=== PATIENT | male | born 1975 | race Caucasian/White ===

== ENCOUNTER 2016-07-31 15:43 | Outpatient (CLI) ==
[2014-09-24 12:32] VITALS: BMI 39.9
[2016-07-31 16:50] LABS: BASOPHILS % (AUTO) 0.4 % (0.0-3.0); EOSINOPHILS # (AUTO) 0.1 K/ul (0.0-0.7); EOSINOPHILS % (AUTO) 1.3 % (0.0-7.0); HEMATOCRIT 45.4 % (42.0-52.0); HEMOGLOBIN 15.3 g/dl (14.0-18.0); IMMATURE GRANULOCYTE % (AUTO) 0.4 % (0.0-5.0); LYMPHOCYTES # (AUTO) 2.3 K/uL (0.60-3.4); LYMPHOCYTES % (AUTO) 23.5 (10.0-50.0); MEAN CORPUSCULAR HEMOGLOBIN 26.7 pg (27.0-31.0); MEAN CORPUSCULAR HGB CONC 33.7 (31.8-35.4); MEAN CORPUSCULAR VOLUME 79.2 fl (80.0-94.0); MONOCYTES # (AUTO) 0.8 K/uL (0.4-2.0); MONOCYTES % (AUTO) 7.8 (0-10); NEUTROPHILS # (AUTO) 6.4 K/ul (2.0-6.9); NEUTROPHILS % (AUTO) 66.6; PLATELET COUNT 304 10^3/uL (140-440); RED BLOOD COUNT 5.73 10^6/ul (4.70-6.10); WHITE BLOOD COUNT 9.57 K/ul (4.2-10.2)
[2016-07-31 16:52] LABS: BILIRUBIN,URINE Negative (NEGATIVE); KETONES,URINE Negative (NEGATIVE); LEUKOCYTE ESTERASE ,URINE Negative (NEGATIVE); NITRITE,URINE Negative (NEGATIVE); PH,URINE 5.5 (5-9); PROTEIN,URINE 1+ (NEGATIVE); URINE, BLOOD Trace-intact (NEGATIVE)
[2016-07-31 16:58] LABS: ADD URINE MICROSCOPIC YES
[2016-07-31 17:09] LABS: ALBUMIN 3.6 g/dL (3.4-5.0); ALBUMIN/GLOBULIN RATIO 0.71; ANION GAP 14.1; BILIRUBIN,TOTAL 0.4 mg/dL (0.00-1.20); BUN/CREATININE RATIO 16.1; CHOL/HDL RATIO 5.4 (4.5-6.4); CREATININE 1.18 mg/dL (0.60-1.10); POTASSIUM 4.1 mmol/L (3.5-5.1); TOTAL PROTEIN 8.7 g/dL (6.4-8.2)
== END 2016-07-31 15:44 | disposition home or self-care (01) ==
LOC: LAB 15:43
PROVIDERS: ATTEND General Practice
DX: E11.628 Type 2 diabetes mellitus with other skin complications (principal); I10 Essential (primary) hypertension; Z79.899 Other long term (current) drug therapy
CPT/HCPCS: 36415; 80053; 80061; 81001; 83036; 85025

== ENCOUNTER 2016-10-25 20:28 | Emergency (ER) ==
[2016-10-25 20:37] VITALS: BP 162/93; TEMP 98.4; BMI 40.4
[2016-10-25] MEDS ORDERED: LIDOCAINE HCL 4% 5 ML AMP INJ STA (20:51)
[2016-10-25] MEDS ORDERED: BACTRIM DS 800/160 MG PO STA (20:55)
--- NOTE | 2016-10-25 20:55 | ED.PDOC ---
General ED Provider: Dr. IMANI HARRIS Chief Complaint: Bite Stated Complaint: Pateint states he noticed that the back of his neck was swelling. Thinks it was an infected hair follical. Over the past 24 hours it has gotten larger and more painful and formed a head. Time Seen by Physician: 20:52 Mode of Arrival: Walk-In Information Source: Patient Exam Limitations: No limitations [facility] Documentation Reviewed and Agree: Yes Skin Complaint Exam - Skin/Soft Tissue Complaint/Exam Onset/Duration: 3 day Symptoms Are: Still present Timing: Constant Initial Severity: Moderate Current Severity: Severe Location: Posterior Character: Reports: Redness, Swelling, Raised, Painful Aggravating: Reports: Touch Alleviating: Reports: None Associated Signs and Symptoms: Reports: Tenderness, Red streaks Related History: Denies: Similar episode, Recent trauma, Foreign body, Insect bite/sting, Recent Med change, Prior MRSA/VRE, Recent inpatient, Recent travel Related Surgical History: Reports: None Skin Findings: Present: Erythema, Induration, Fluctuant mass, Pustules. Absent : Weeping skin, Wet ulceration, Dry ulceration Joint Tenderness Present: No Differential Diagnoses: Abscess, Cellulitis, Lymphadenitis, MRSA Review of Systems - Review Of Systems Constitutional: Reports: No symptoms Eyes: Reports: No symptoms Ears, Nose, Mouth, Throat: Reports: No symptoms Respiratory: Reports: No symptoms Cardiac: Reports: No symptoms GI: Reports: No symptoms : Reports: No symptoms Musculoskeletal: Reports: No symptoms Skin: Reports: Lesions Neurological: Reports: No symptoms Endocrine: Reports: No symptoms Hematologic/Lymphatic: Reports: No symptoms All Other Systems: Reviewed and Negative Past Medical History - Past Medical History Previously Healthy: Yes Endocrine: Reports: DM 2 Cardiovascular: Reports: Hypertension Respiratory: Reports: None Hematological: Reports: None Gastrointestinal: Reports: GERD Genitourinary: Reports: None Neuro/Psych: Reports: Anxiety, Depression Musculoskeletal: Reports: None Cancer: Reports: None - Surgical History General Surgical History: Reports: Tonsillectomy, Adenoidectomy - Family History Family History: Reports: Unknown - Social History Smoking Status: Never smoker Hx Substance Use: No Alcohol Screening: Occasionally - Immunizations Tetanus Shot up to Date: Yes Physical Exam - Physical Exam Appearance: Ill-appearing, No pain distress, Obese Ill-appearing: Mild Pain Distress: Moderate Eyes: KRYSTIAN, EOMI, Conjunctiva clear Neck: Nonsupple (Fluctuate mass on the posterior neck with warmth and redness has formed a head.) Respiratory: Airway patent, Breath sounds clear, Breath sounds equal, Respirations nonlabored Cardiovascular: RRR, Pulses normal, No rub, No murmur GI/: Soft, Nontender, No masses, Bowel sounds normal, No Organomegaly Musculoskeletal: Normal strength, ROM intact, No edema, No calf tenderness Skin: Warm, Dry Neurological: Sensation intact, Motor intact, Reflexes intact, Cranial nerves intact, Alert, Oriented Psychiatric: Mood appropriate, Anxious Procedures - Incision and Drainage Site: Posterior Cervical Instrument Used: 11 Blade I & D Procedure: Yes: Betadine Prep, Packing placed Lidocaine Used: Yes Type of Drainage: Present: Pus (copuis ), Blood Irrigated: Yes Progress: Tolerated well Critical Care Note - Critical Care Note Total Time (mins): 0 Course - Course Orders, Labs, Meds: Orders Category Date Time Status WOUND CULTURE Stat LAB 10/25/16 21:30 Received Lidocaine HCl/Pf [Lidocaine HCl 4% 5 ml Amp] MEDS 10/25/16 20:51 Discontinued 5 ml INJ ONCE STA Sulfamethoxazole/Trimethoprim [Bactrim Ds 800/160 mg] MEDS 10/25/16 20:55 Discontinued 1 tab PO ONCE STA Medications Discontinued Medications Generic Name Dose Route Start Last Admin Trade Name Freq PRN Reason Stop Dose Admin Lidocaine HCl 5 ml 10/25/16 20:51 10/25/16 21:19 Lidocaine Hcl 4% 5 Ml Amp INJ 10/25/16 20:52 5 ml ONCE STA Administration Trimethoprim/Sulfamethoxazole 1 tab 10/25/16 20:55 10/25/16 21:18 Bactrim Ds 800/160 Mg PO 10/25/16 20:56 1 tab ONCE STA Administration Vital Signs: Temp Pulse Resp BP Pulse Ox 10/25/16 20:28 98.4 F 102 H 22 162/93 H 94 L Departure - Departure Time of Disposition: 21:37 Disposition: HOME SELF-CARE Discharge Problem: Abscess of neck Instructions: Abscess (ED) Condition: Fair Pt referred to PMD for follow-up: Yes Additional Instructions: Push fluids Follow up with PCP in 2 days to have packing changed Take antibiotics as prescribed. Prescriptions: Ibuprofen [Motrin] 600 mg PO Q6H PRN #30 tablet PRN Reason: Analgesia Sulfamethoxazole/Trimethoprim [Bactrim Ds Tablet] 1 each PO BID #20 tablet Allergies/Adverse Reactions: Allergies IVP dye Allergy (Severe, Uncoded 10/25/16 20:34) N/V Home Medications: Ambulatory Orders Empagliflozin [Jardiance] 10 mg PO DAILY 10/25/16 Ibuprofen [Motrin] 600 mg PO Q6H PRN #30 tablet 10/25/16 Linagliptin [Tradjenta] 5 mg PO DAILY 10/25/16 Sulfamethoxazole/Trimethoprim [Bactrim Ds Tablet] 1 each PO BID #20 tablet 10/25 Disposition Discussed With: Patient
== END 2016-10-25 21:46 | disposition home or self-care (01) ==
LOC: ED 20:28
DX: L02.11 Cutaneous abscess of neck (principal); E11.9 Type 2 diabetes mellitus without complications; I10 Essential (primary) hypertension
CPT/HCPCS: 87070; 87186; 99283

== ENCOUNTER 2016-10-29 12:39 | Outpatient (CLI) ==
[2016-10-29 13:08] LABS: ALBUMIN 2.9 g/dL (3.4-5.0); ANION GAP 14.7; BUN/CREATININE RATIO 15.9; CALCIUM 10.2 mg/dL (8.2-10.2); CREATININE 1.32 mg/dL (0.60-1.10); PHOSPHORUS 3.5 mg/dL (2.5-4.9); POTASSIUM 4.7 mmol/L (3.5-5.1)
== END 2016-10-29 12:40 | disposition home or self-care (01) ==
LOC: LAB 12:39
PROVIDERS: ATTEND General Practice
DX: E11.628 Type 2 diabetes mellitus with other skin complications (principal)
CPT/HCPCS: 36415; 80069

== ENCOUNTER 2017-02-12 14:49 | Outpatient (CLI) | END 2017-02-12 14:50 | disposition home or self-care (01) | LOC: LAB 14:49 | PROVIDERS: ATTEND General Practice | DX: J02.9 Acute pharyngitis, unspecified (principal); R59.9 Enlarged lymph nodes, unspecified | CPT/HCPCS: 36415; 86308; 87502; 87651 ==

== ENCOUNTER 2017-02-13 10:19 | Outpatient (CLI) | END 2017-02-13 10:20 | disposition home or self-care (01) | LOC: LAB 10:19 | PROVIDERS: ATTEND General Practice | DX: E11.628 Type 2 diabetes mellitus with other skin complications (principal); I10 Essential (primary) hypertension | CPT/HCPCS: 36415; 80053; 80061; 81001; 83036; 85025 ==

== ENCOUNTER 2017-04-14 11:50 | Outpatient (CLI) | END 2017-04-14 11:51 | disposition home or self-care (01) | LOC: FCC-LAB 11:50 | PROVIDERS: ATTEND General Practice | DX: R05 Cough (principal); R09.81 Nasal congestion | CPT/HCPCS: 87804 ==

== ENCOUNTER 2017-04-23 11:07 | Outpatient (CLI) | END 2017-04-23 11:08 | disposition home or self-care (01) | LOC: FCC-LAB 11:07 | PROVIDERS: ATTEND General Practice | DX: E11.628 Type 2 diabetes mellitus with other skin complications (principal); E11.65 Type 2 diabetes mellitus with hyperglycemia; I10 Essential (primary) hypertension; Z79.899 Other long term (current) drug therapy; Z89.411 Acquired absence of right great toe | CPT/HCPCS: 36415; 80053; 80061; 81001; 83036; 83519; 83525; 84681; 85025 ==

== ENCOUNTER 2017-06-30 17:38 | Outpatient (CLI) | END 2017-06-30 17:39 | disposition home or self-care (01) | LOC: FCC-LAB 17:38 | PROVIDERS: ATTEND General Practice | DX: E11.628 Type 2 diabetes mellitus with other skin complications (principal) | CPT/HCPCS: 83037 ==

== ENCOUNTER 2017-07-27 10:04 | Outpatient (CLI) | END 2017-07-27 10:05 | disposition home or self-care (01) | LOC: FCC-LAB 10:04 | PROVIDERS: ATTEND General Practice | DX: E11.628 Type 2 diabetes mellitus with other skin complications (principal); I10 Essential (primary) hypertension | CPT/HCPCS: 36415; 80069; 83036 ==

== ENCOUNTER 2017-07-31 16:50 | Outpatient (CLI) | END 2017-07-31 16:51 | disposition home or self-care (01) | LOC: FCC-LAB 16:50 | PROVIDERS: ATTEND General Practice | DX: E11.628 Type 2 diabetes mellitus with other skin complications (principal) | CPT/HCPCS: 87070; 87186 ==

== ENCOUNTER 2017-08-05 07:41 | Outpatient (CLI) ==
[2017-08-05] MEDS ORDERED: LIDOCAINE HCL 1% SDV IM STA (10:58)
[2017-08-05] MEDS ORDERED: ROCEPHIN IM STA (10:58)
[2017-08-05 11:24] VITALS: BP 153/101; TEMP 97.7
--- NOTE | 2017-08-05 13:40 | DI ---
EXAM: Three views of the left foot HISTORY: Infection. COMPARISON: CT left foot 09/24/2014 FINDINGS: There is significant thickening of the skin overlying the amputation site at the metatarsal s. There are osteophytes present. There is no definitive erosions or lytic lesion. There is degene rative change in the midfoot. Calcaneal spurs are present. IMPRESSION: 1. Significant skin thickening overlying the site of amputation suggestive of cellulitis with no und erlying gas or definitive osseous abnormality to suggest osteomyelitis. If further evaluation is ind icated, MRI may be obtained. 2. Degenerative disease throughout the mid and hind foot.
== END 2017-08-05 07:42 | disposition home or self-care (01) ==
LOC: WOUND 07:41 → OPMED 07:42
PROVIDERS: ATTEND Nurse Practitioner Family
DX: E11.621 Type 2 diabetes mellitus with foot ulcer (principal)
CPT/HCPCS: 11042; 36415; 85027; 87070; 87186; 96372; 99202; 99204

== ENCOUNTER 2017-08-19 08:44 | Outpatient (CLI) | END 2017-08-19 08:45 | disposition home or self-care (01) | LOC: WOUND 08:44 | PROVIDERS: ATTEND Nurse Practitioner Family | DX: I87.332 Chronic venous hypertension (idiopathic) with ulcer and inflammation of left lower extremity (principal); L97.422 Non-pressure chronic ulcer of left heel and midfoot with fat layer exposed; E11.621 Type 2 diabetes mellitus with foot ulcer; L89.623 Pressure ulcer of left heel, stage 3; L97.822 Non-pressure chronic ulcer of other part of left lower leg with fat layer exposed; I10 Essential (primary) hypertension; E11.40 Type 2 diabetes mellitus with diabetic neuropathy, unspecified | CPT/HCPCS: 11042 ==

== ENCOUNTER 2017-08-21 14:31 | Outpatient (CLI) | END 2017-08-21 14:32 | disposition home or self-care (01) | LOC: FCC-LAB 14:31 | PROVIDERS: ATTEND General Practice | DX: E11.628 Type 2 diabetes mellitus with other skin complications (principal) | CPT/HCPCS: 36415; 83037 ==

== ENCOUNTER 2017-08-26 08:57 | Outpatient (CLI) | END 2017-08-26 08:58 | disposition home or self-care (01) | LOC: WOUND 08:57 | PROVIDERS: ATTEND Nurse Practitioner Family | DX: I87.332 Chronic venous hypertension (idiopathic) with ulcer and inflammation of left lower extremity (principal); L97.422 Non-pressure chronic ulcer of left heel and midfoot with fat layer exposed; E11.621 Type 2 diabetes mellitus with foot ulcer; L89.623 Pressure ulcer of left heel, stage 3; L97.822 Non-pressure chronic ulcer of other part of left lower leg with fat layer exposed; I10 Essential (primary) hypertension; E11.40 Type 2 diabetes mellitus with diabetic neuropathy, unspecified | CPT/HCPCS: 11042; 99213 ==

== ENCOUNTER 2017-08-31 07:57 | Outpatient (CLI) ==
--- NOTE | 2017-08-31 10:41 | MRI ---
EXAM: MRI of the left lower extremity without contrast COMPARISON: Left foot radiographs 08/05/2017. CT of the left foot 09/24/2014. HISTORY: Transmetatarsal amputation 1 year ago due to osteomyelitis. Drainage, infection. TECHNIQUE: Multiplanar noncontrast MR images of the left midfoot and forefoot remnant were acquired using a 1.2 Kelly magnet. The submitted images are mildly limited by patient motion artifact. FINDINGS: The patient is status post transmetatarsal amputation. There is subcutaneous edema involvi ng the midfoot and forefoot remnant which is most pronounced distally at the site of previous surgery consistent with cellulitis. There is soft tissue ulceration involving the distal portion of the low er extremity stump extending along the plantar aspect of the metatarsal remnants. Ill-defined fluid e xtending along the distal aspect of the fifth metatarsal remnant without a discrete drainable abscess . There is low-level marrow edema within the distal portion of the first through fifth metatarsal rem nants which may represent reactive marrow edema though early changes of acute osteomyelitis are not e xcluded. Degenerative spurring along the tarsometatarsal, navicular cuneiform and talonavicular joints with la rgest osteophytes dorsally at the talonavicular joint. Limited assessment the ankle/hind-foot demons trates degenerative change of the tibiotalar and subtalar joints with partial ankylosis/osseous coali tion along the middle facet of the subtalar joint. No evidence of an acute fracture. Intact Lisfran c ligament fibers are identified. Muscle atrophy. Plantar calcaneal spur. No soft tissue mass iden tified. IMPRESSION: 1. Status post transmetatarsal amputation. 2. Cellulitis. Soft tissue ulceration involving the plantar/distal aspect of the lower extremity st ump. Trace ill-defined fluid along the distal aspect of the fifth metatarsal remnant without a discr ete drainable abscess. 3. Low-level marrow edema within the distal portions of the first through fifth metatarsal remnants which may be reactive in nature though early changes of acute osteomyelitis are not excluded. Consid er follow-up imaging. 4. Muscle atrophy. 5. Degenerative changes as described.
== END 2017-08-31 07:58 | disposition home or self-care (01) ==
LOC: RAD 07:57
PROVIDERS: ATTEND General Practice
DX: M79.89 Other specified soft tissue disorders (principal); T14.8XXA Other injury of unspecified body region, initial encounter; R23.4 Changes in skin texture

== ENCOUNTER 2017-09-02 10:16 | Outpatient (CLI) | END 2017-09-02 10:17 | disposition home or self-care (01) | LOC: WOUND 10:16 | PROVIDERS: ATTEND Nurse Practitioner Family | DX: I87.332 Chronic venous hypertension (idiopathic) with ulcer and inflammation of left lower extremity (principal); L97.422 Non-pressure chronic ulcer of left heel and midfoot with fat layer exposed; E11.621 Type 2 diabetes mellitus with foot ulcer; L89.623 Pressure ulcer of left heel, stage 3; L97.822 Non-pressure chronic ulcer of other part of left lower leg with fat layer exposed; I10 Essential (primary) hypertension; E11.40 Type 2 diabetes mellitus with diabetic neuropathy, unspecified | CPT/HCPCS: 11042 ==

== ENCOUNTER 2017-09-09 08:49 | Outpatient (CLI) | END 2017-09-09 08:50 | disposition home or self-care (01) | LOC: WOUND 08:49 | PROVIDERS: ATTEND Nurse Practitioner Family | DX: I87.332 Chronic venous hypertension (idiopathic) with ulcer and inflammation of left lower extremity (principal); L97.822 Non-pressure chronic ulcer of other part of left lower leg with fat layer exposed; E11.621 Type 2 diabetes mellitus with foot ulcer; L97.422 Non-pressure chronic ulcer of left heel and midfoot with fat layer exposed; I10 Essential (primary) hypertension; E11.40 Type 2 diabetes mellitus with diabetic neuropathy, unspecified | CPT/HCPCS: 11042 ==

== ENCOUNTER 2017-09-16 08:53 | Outpatient (CLI) | END 2017-09-16 08:54 | disposition home or self-care (01) | LOC: WOUND 08:53 | PROVIDERS: ATTEND Nurse Practitioner Family | DX: I87.332 Chronic venous hypertension (idiopathic) with ulcer and inflammation of left lower extremity (principal); L97.822 Non-pressure chronic ulcer of other part of left lower leg with fat layer exposed; E11.621 Type 2 diabetes mellitus with foot ulcer; L97.422 Non-pressure chronic ulcer of left heel and midfoot with fat layer exposed; I10 Essential (primary) hypertension; E11.40 Type 2 diabetes mellitus with diabetic neuropathy, unspecified ==

== ENCOUNTER 2017-09-23 08:59 | Outpatient (CLI) | END 2017-09-23 09:00 | disposition home or self-care (01) | LOC: WOUND 08:59 | PROVIDERS: ATTEND Nurse Practitioner Family | DX: I87.332 Chronic venous hypertension (idiopathic) with ulcer and inflammation of left lower extremity (principal); L97.822 Non-pressure chronic ulcer of other part of left lower leg with fat layer exposed; E11.621 Type 2 diabetes mellitus with foot ulcer; L97.422 Non-pressure chronic ulcer of left heel and midfoot with fat layer exposed; I10 Essential (primary) hypertension; E11.40 Type 2 diabetes mellitus with diabetic neuropathy, unspecified ==

== ENCOUNTER 2017-10-07 08:59 | Outpatient (CLI) | END 2017-10-07 09:00 | disposition home or self-care (01) | LOC: WOUND 08:59 | PROVIDERS: ATTEND Nurse Practitioner Family | DX: E11.621 Type 2 diabetes mellitus with foot ulcer (principal); L97.422 Non-pressure chronic ulcer of left heel and midfoot with fat layer exposed; I10 Essential (primary) hypertension; E11.40 Type 2 diabetes mellitus with diabetic neuropathy, unspecified | CPT/HCPCS: 87070; 87186 ==

== ENCOUNTER 2017-11-04 08:52 | Outpatient (CLI) | END 2017-11-04 08:53 | disposition home or self-care (01) | LOC: WOUND 08:52 | PROVIDERS: ATTEND Nurse Practitioner Family | DX: E11.621 Type 2 diabetes mellitus with foot ulcer (principal); L97.422 Non-pressure chronic ulcer of left heel and midfoot with fat layer exposed; I10 Essential (primary) hypertension; E11.40 Type 2 diabetes mellitus with diabetic neuropathy, unspecified | CPT/HCPCS: 11042; 87070; 87186 ==

== ENCOUNTER 2017-11-11 09:43 | Outpatient (CLI) | END 2017-11-11 09:44 | disposition home or self-care (01) | LOC: WOUND 09:43 | PROVIDERS: ATTEND Nurse Practitioner Family | DX: E11.621 Type 2 diabetes mellitus with foot ulcer (principal); L97.422 Non-pressure chronic ulcer of left heel and midfoot with fat layer exposed; I10 Essential (primary) hypertension; E11.40 Type 2 diabetes mellitus with diabetic neuropathy, unspecified ==

== ENCOUNTER 2017-11-18 09:44 | Outpatient (CLI) | END 2017-11-18 09:45 | disposition home or self-care (01) | LOC: WOUND 09:44 | PROVIDERS: ATTEND Nurse Practitioner Family | DX: E11.621 Type 2 diabetes mellitus with foot ulcer (principal); L97.422 Non-pressure chronic ulcer of left heel and midfoot with fat layer exposed; I10 Essential (primary) hypertension; E11.40 Type 2 diabetes mellitus with diabetic neuropathy, unspecified | CPT/HCPCS: 11042 ==

== ENCOUNTER 2017-12-02 09:43 | Outpatient (CLI) | END 2017-12-02 09:44 | disposition home or self-care (01) | LOC: WOUND 09:43 | PROVIDERS: ATTEND Nurse Practitioner Family | DX: E11.621 Type 2 diabetes mellitus with foot ulcer (principal); L97.422 Non-pressure chronic ulcer of left heel and midfoot with fat layer exposed; I10 Essential (primary) hypertension; E11.40 Type 2 diabetes mellitus with diabetic neuropathy, unspecified ==

== ENCOUNTER 2017-12-09 09:33 | Outpatient (CLI) | END 2017-12-09 09:34 | disposition home or self-care (01) | LOC: WOUND 09:33 | PROVIDERS: ATTEND Nurse Practitioner Family | DX: E11.621 Type 2 diabetes mellitus with foot ulcer (principal); L97.422 Non-pressure chronic ulcer of left heel and midfoot with fat layer exposed; I10 Essential (primary) hypertension; E11.40 Type 2 diabetes mellitus with diabetic neuropathy, unspecified | CPT/HCPCS: 11042 ==

== ENCOUNTER 2017-12-16 09:28 | Outpatient (CLI) | END 2017-12-16 09:29 | disposition home or self-care (01) | LOC: WOUND 09:28 | PROVIDERS: ATTEND Nurse Practitioner Family | DX: E11.621 Type 2 diabetes mellitus with foot ulcer (principal); L97.422 Non-pressure chronic ulcer of left heel and midfoot with fat layer exposed; I10 Essential (primary) hypertension; E11.40 Type 2 diabetes mellitus with diabetic neuropathy, unspecified | CPT/HCPCS: 11042 ==

== ENCOUNTER 2017-12-30 08:52 | Outpatient (CLI) | END 2017-12-30 08:53 | disposition home or self-care (01) | LOC: WOUND 08:52 | PROVIDERS: ATTEND Nurse Practitioner Family | DX: E11.621 Type 2 diabetes mellitus with foot ulcer (principal); L97.422 Non-pressure chronic ulcer of left heel and midfoot with fat layer exposed; I10 Essential (primary) hypertension; E11.40 Type 2 diabetes mellitus with diabetic neuropathy, unspecified ==

== ENCOUNTER 2018-02-10 08:51 | Outpatient (CLI) | END 2018-02-10 08:52 | disposition home or self-care (01) | LOC: WOUND 08:51 | PROVIDERS: ATTEND Nurse Practitioner Family | DX: E11.621 Type 2 diabetes mellitus with foot ulcer (principal); L97.422 Non-pressure chronic ulcer of left heel and midfoot with fat layer exposed; I10 Essential (primary) hypertension; E11.40 Type 2 diabetes mellitus with diabetic neuropathy, unspecified | CPT/HCPCS: 97597 ==

== ENCOUNTER 2018-02-17 09:02 | Outpatient (CLI) | END 2018-02-17 09:03 | disposition home or self-care (01) | LOC: WOUND 09:02 | PROVIDERS: ATTEND Nurse Practitioner Family | DX: E11.621 Type 2 diabetes mellitus with foot ulcer (principal) | CPT/HCPCS: 99213 ==

== ENCOUNTER 2018-03-02 11:44 | Outpatient (CLI) | END 2018-03-02 11:45 | disposition home or self-care (01) | LOC: RHC-LAB 11:44 | PROVIDERS: ATTEND Family Medicine | DX: E78.2 Mixed hyperlipidemia (principal); E11.628 Type 2 diabetes mellitus with other skin complications; I10 Essential (primary) hypertension | CPT/HCPCS: 36415; 80053; 80061; 82043; 83037; 85025 ==

== ENCOUNTER 2018-03-03 08:48 | Outpatient (CLI) | END 2018-03-03 08:49 | disposition home or self-care (01) | LOC: WOUND 08:48 | PROVIDERS: ATTEND Nurse Practitioner Family | DX: E11.621 Type 2 diabetes mellitus with foot ulcer (principal); L97.422 Non-pressure chronic ulcer of left heel and midfoot with fat layer exposed; I10 Essential (primary) hypertension; E11.40 Type 2 diabetes mellitus with diabetic neuropathy, unspecified | CPT/HCPCS: 11042 ==

== ENCOUNTER 2018-03-10 08:52 | Outpatient (CLI) | END 2018-03-10 08:53 | disposition home or self-care (01) | LOC: WOUND 08:52 | PROVIDERS: ATTEND Nurse Practitioner Family | DX: E11.621 Type 2 diabetes mellitus with foot ulcer (principal); L97.422 Non-pressure chronic ulcer of left heel and midfoot with fat layer exposed; I10 Essential (primary) hypertension; E11.40 Type 2 diabetes mellitus with diabetic neuropathy, unspecified | CPT/HCPCS: 11042 ==

== ENCOUNTER 2018-03-17 09:00 | Outpatient (CLI) | END 2018-03-17 09:01 | disposition home or self-care (01) | LOC: WOUND 09:00 | PROVIDERS: ATTEND Nurse Practitioner Family | DX: E11.621 Type 2 diabetes mellitus with foot ulcer (principal); L97.422 Non-pressure chronic ulcer of left heel and midfoot with fat layer exposed; I10 Essential (primary) hypertension; E11.40 Type 2 diabetes mellitus with diabetic neuropathy, unspecified | CPT/HCPCS: 11042 ==

== ENCOUNTER 2018-03-24 08:49 | Outpatient (CLI) | END 2018-03-24 08:50 | disposition home or self-care (01) | LOC: WOUND 08:49 | PROVIDERS: ATTEND Nurse Practitioner Family | DX: E11.621 Type 2 diabetes mellitus with foot ulcer (principal); L97.422 Non-pressure chronic ulcer of left heel and midfoot with fat layer exposed; I10 Essential (primary) hypertension; E11.40 Type 2 diabetes mellitus with diabetic neuropathy, unspecified | CPT/HCPCS: 11042 ==

== ENCOUNTER 2018-03-31 08:48 | Outpatient (CLI) | END 2018-03-31 08:49 | disposition home or self-care (01) | LOC: WOUND 08:48 | PROVIDERS: ATTEND Nurse Practitioner Family | DX: E11.621 Type 2 diabetes mellitus with foot ulcer (principal); L97.422 Non-pressure chronic ulcer of left heel and midfoot with fat layer exposed; I10 Essential (primary) hypertension; E11.40 Type 2 diabetes mellitus with diabetic neuropathy, unspecified | CPT/HCPCS: 11042 ==

== ENCOUNTER 2018-04-14 08:53 | Outpatient (CLI) | END 2018-04-14 08:54 | disposition home or self-care (01) | LOC: WOUND 08:53 | PROVIDERS: ATTEND Nurse Practitioner Family | DX: E11.621 Type 2 diabetes mellitus with foot ulcer (principal); L97.422 Non-pressure chronic ulcer of left heel and midfoot with fat layer exposed; I10 Essential (primary) hypertension; E11.40 Type 2 diabetes mellitus with diabetic neuropathy, unspecified ==

== ENCOUNTER 2018-04-28 08:57 | Outpatient (CLI) | END 2018-04-28 08:58 | disposition home or self-care (01) | LOC: WOUND 08:57 | PROVIDERS: ATTEND Nurse Practitioner Family | DX: E11.621 Type 2 diabetes mellitus with foot ulcer (principal); L97.422 Non-pressure chronic ulcer of left heel and midfoot with fat layer exposed; I10 Essential (primary) hypertension; E11.40 Type 2 diabetes mellitus with diabetic neuropathy, unspecified | CPT/HCPCS: 11042; 97597 ==

== ENCOUNTER 2018-05-11 14:28 | Outpatient (CLI) | END 2018-05-11 14:29 | disposition home or self-care (01) | LOC: CAR 14:28 | PROVIDERS: ATTEND Psychiatry & Neurology Sleep Medicine | DX: G47.33 Obstructive sleep apnea (adult) (pediatric) (principal) | CPT/HCPCS: 95810 ==

== ENCOUNTER 2018-05-12 08:47 | Outpatient (CLI) | END 2018-05-12 08:48 | disposition home or self-care (01) | LOC: WOUND 08:47 | DX: E11.621 Type 2 diabetes mellitus with foot ulcer (principal); L97.422 Non-pressure chronic ulcer of left heel and midfoot with fat layer exposed; I10 Essential (primary) hypertension; E11.40 Type 2 diabetes mellitus with diabetic neuropathy, unspecified ==

== ENCOUNTER 2018-05-13 15:28 | Outpatient (CLI) | END 2018-05-13 15:29 | disposition home or self-care (01) | LOC: RHC-LAB 15:28 → FCC-LAB 15:29 | PROVIDERS: ATTEND Nurse Practitioner Family | DX: S91.302A Unspecified open wound, left foot, initial encounter (principal) | CPT/HCPCS: 87070; 87186 ==

== ENCOUNTER 2018-05-19 08:49 | Outpatient (CLI) ==
[2018-05-19] MEDS ORDERED: ROCEPHIN IM STA (11:25)
[2018-05-19] MEDS ORDERED: LIDOCAINE HCL 1% SDV IM STA (11:25)
[2018-05-19 11:31] VITALS: BP 137/79; TEMP 97.7
== END 2018-05-19 08:50 | disposition home or self-care (01) ==
LOC: WOUND 08:49 → OPMED 08:50
PROVIDERS: ATTEND Nurse Practitioner Family
DX: E11.621 Type 2 diabetes mellitus with foot ulcer (principal); L97.422 Non-pressure chronic ulcer of left heel and midfoot with fat layer exposed; I10 Essential (primary) hypertension; E11.40 Type 2 diabetes mellitus with diabetic neuropathy, unspecified; S91.302A Unspecified open wound, left foot, initial encounter; B95.8 Unspecified staphylococcus as the cause of diseases classified elsewhere; B96.89 Other specified bacterial agents as the cause of diseases classified elsewhere
CPT/HCPCS: 11043; 96372

== ENCOUNTER 2018-05-20 08:51 | Outpatient (CLI) ==
[2018-05-20 09:08] VITALS: BP 144/66; TEMP 97.2
[2018-05-20] MEDS ORDERED: LIDOCAINE HCL 1% SDV IM STA (09:12)
[2018-05-20] MEDS ORDERED: ROCEPHIN IM STA (09:12)
== END 2018-05-20 08:52 | disposition home or self-care (01) ==
LOC: OPMED 08:51
PROVIDERS: ATTEND Nurse Practitioner Family
DX: S91.302A Unspecified open wound, left foot, initial encounter (principal); B95.8 Unspecified staphylococcus as the cause of diseases classified elsewhere; B96.89 Other specified bacterial agents as the cause of diseases classified elsewhere
CPT/HCPCS: 96372

== ENCOUNTER 2018-05-21 09:11 | Outpatient (CLI) ==
[2018-05-21] MEDS ORDERED: ROCEPHIN IM STA (09:20)
[2018-05-21] MEDS ORDERED: LIDOCAINE HCL 1% SDV IM STA (09:20)
[2018-05-21 09:22] VITALS: BP 123/77; TEMP 97.8
== END 2018-05-21 09:12 | disposition home or self-care (01) ==
LOC: OPMED 09:11
PROVIDERS: ATTEND Nurse Practitioner Family
DX: S91.302A Unspecified open wound, left foot, initial encounter (principal); B95.8 Unspecified staphylococcus as the cause of diseases classified elsewhere; B96.89 Other specified bacterial agents as the cause of diseases classified elsewhere
CPT/HCPCS: 96372

== ENCOUNTER 2018-05-24 08:46 | Outpatient (CLI) ==
[2018-05-24 09:09] VITALS: BP 126/84; TEMP 97.6
[2018-05-24] MEDS ORDERED: ROCEPHIN IM STA (09:17)
[2018-05-24] MEDS ORDERED: LIDOCAINE HCL 1% SDV IM STA (09:17)
== END 2018-05-24 08:47 | disposition home or self-care (01) ==
LOC: OPMED 08:46
PROVIDERS: ATTEND Nurse Practitioner Family
DX: S91.302A Unspecified open wound, left foot, initial encounter (principal); B95.8 Unspecified staphylococcus as the cause of diseases classified elsewhere; B96.89 Other specified bacterial agents as the cause of diseases classified elsewhere
CPT/HCPCS: 96372

== ENCOUNTER 2018-05-25 08:56 | Outpatient (CLI) ==
[2018-05-25] MEDS ORDERED: LIDOCAINE HCL 1% SDV IM STA (09:04)
[2018-05-25] MEDS ORDERED: ROCEPHIN IM STA (09:04)
[2018-05-25 09:14] VITALS: BP 140/91; TEMP 98.1
== END 2018-05-25 08:57 | disposition home or self-care (01) ==
LOC: OPMED 08:56
PROVIDERS: ATTEND Nurse Practitioner Family
DX: S91.302A Unspecified open wound, left foot, initial encounter (principal); B95.8 Unspecified staphylococcus as the cause of diseases classified elsewhere; B96.89 Other specified bacterial agents as the cause of diseases classified elsewhere
CPT/HCPCS: 96372

== ENCOUNTER 2018-05-26 08:43 | Outpatient (CLI) ==
[2018-05-26] MEDS ORDERED: LIDOCAINE HCL 1% SDV IM STA (09:46)
[2018-05-26] MEDS ORDERED: ROCEPHIN IM STA (09:46)
[2018-05-26 09:50] VITALS: BP 135/81; TEMP 98.7
== END 2018-05-26 08:44 | disposition home or self-care (01) ==
LOC: OPMED 08:43
PROVIDERS: ATTEND Nurse Practitioner Family
DX: E11.621 Type 2 diabetes mellitus with foot ulcer (principal); L97.422 Non-pressure chronic ulcer of left heel and midfoot with fat layer exposed; I10 Essential (primary) hypertension; E11.40 Type 2 diabetes mellitus with diabetic neuropathy, unspecified; S91.302A Unspecified open wound, left foot, initial encounter; B95.8 Unspecified staphylococcus as the cause of diseases classified elsewhere; B96.89 Other specified bacterial agents as the cause of diseases classified elsewhere
CPT/HCPCS: 96372

== ENCOUNTER 2018-05-27 08:37 | Outpatient (CLI) ==
[2018-05-27] MEDS ORDERED: ROCEPHIN IM STA (08:50)
[2018-05-27] MEDS ORDERED: LIDOCAINE HCL 1% SDV IM STA (08:50)
[2018-05-27 09:12] VITALS: BP 151/76; TEMP 97.7
== END 2018-05-27 08:38 | disposition home or self-care (01) ==
LOC: OPMED 08:37
PROVIDERS: ATTEND Nurse Practitioner Family
DX: S91.302A Unspecified open wound, left foot, initial encounter (principal); B95.8 Unspecified staphylococcus as the cause of diseases classified elsewhere; B96.89 Other specified bacterial agents as the cause of diseases classified elsewhere
CPT/HCPCS: 96372

== ENCOUNTER 2018-06-09 08:50 | Outpatient (CLI) | END 2018-06-09 08:51 | disposition home or self-care (01) | LOC: WOUND 08:50 | PROVIDERS: ATTEND Nurse Practitioner Family | DX: E11.621 Type 2 diabetes mellitus with foot ulcer (principal); L97.422 Non-pressure chronic ulcer of left heel and midfoot with fat layer exposed; I10 Essential (primary) hypertension; E11.40 Type 2 diabetes mellitus with diabetic neuropathy, unspecified ==

== ENCOUNTER 2018-06-14 11:57 | Outpatient (CLI) ==
--- NOTE | 2018-06-14 15:38 | MRI ---
EXAM: MRI left foot without and with contrast. HISTORY: Type 2 diabetes. Skin complications. Wound bottom of foot. Not healing. Transmetatarsal amputation.. TECHNIQUE: Using a local extremity coil on a high field strength magnet multiplanar multisequence ma gnet resonance imaging performed of the left mid to forefoot pre and post intravenous gadolinium cont rast administration. 20 ml of gadolinium contrast administered for the examination. COMPARISON: Three-view plain film examination left foot 08/05/2017. MRI left foot 08/31/2017. FINDINGS: Prior trans metatarsal amputation.. Extensive soft tissue prominence with swelling over t he medial soft tissue stump centered over the level of the first metatarsal. Artifact related to pos toperative change. Areas of cutaneous irregularity which may reflect ulceration/wound. There is lyt ic bone destruction involving the bony first metatarsal stump. Decreased T1 and increased STIR signa l intensity with enhancement. There is a large 38 mm in length by 36 x 35 mm complex bright T2 signa l intensity collection with peripheral enhancement compatible with adjacent abscess. There is additi onally diffuse decreased T1 and increased STIR signal intensity with enhancement over the second meta tarsal bone stump compatible with osteomyelitis as well. Areas of increased STIR signal intensity within the third, fourth and fifth metatarsal stumps which m ay be reactive. Superimposed degenerative arthrosis/osteoarthrosis. Muscle bulk fatty infiltration with atrophic change.. IMPRESSION: Prior transmetatarsal amputation. Extensive soft tissue edema/swelling which may reflec t cellulitis/phlegmon. Postoperative change. Areas of cutaneous irregularity which may reflect ulce ration/wound. Osteomyelitis with lytic bone destruction first metatarsal stump. Adjacent 38 mm soft tissue abscess . Osteomyelitis involving the second metatarsal bone stump as well. Question reactive bone marrow edema along the third, fourth and fifth metatarsal stumps. Superimposed degenerative arthrosis/osteoarthrosis. Muscle bulk fatty infiltration with atrophic agustin nge. Recommendation is obtainment and correlation with recent plain film radiographs of the left foot as n one are available for comparison at the time of this dictation.
== END 2018-06-14 11:58 | disposition home or self-care (01) ==
LOC: RAD 11:57
PROVIDERS: ATTEND Nurse Practitioner Family
DX: E11.628 Type 2 diabetes mellitus with other skin complications (principal); I10 Essential (primary) hypertension; S91.302D Unspecified open wound, left foot, subsequent encounter; Z89.431 Acquired absence of right foot
CPT/HCPCS: 36415; 80053; 83036

== ENCOUNTER 2018-06-16 09:04 | Outpatient (CLI) | END 2018-06-16 09:05 | disposition home or self-care (01) | LOC: WOUND 09:04 | PROVIDERS: ATTEND Nurse Practitioner Family | DX: E11.621 Type 2 diabetes mellitus with foot ulcer (principal); L97.422 Non-pressure chronic ulcer of left heel and midfoot with fat layer exposed; I10 Essential (primary) hypertension; E11.40 Type 2 diabetes mellitus with diabetic neuropathy, unspecified | CPT/HCPCS: 87070; 87186 ==

== ENCOUNTER 2018-06-25 10:30 | Outpatient (CLI) ==
[2018-06-25 10:41] VITALS: BP 140/82; TEMP 97
[2018-06-25] MEDS ORDERED: ROCEPHIN 2 GM in SODIUM CHLORIDE 50 ML IV STA (10:46)
== END 2018-06-25 10:31 | disposition home or self-care (01) ==
LOC: OPMED 10:30
PROVIDERS: ATTEND Internal Medicine Infectious Disease
DX: L02.612 Cutaneous abscess of left foot (principal); L02.611 Cutaneous abscess of right foot; B95.61 Methicillin susceptible Staphylococcus aureus infection as the cause of diseases classified elsewhere; B95.2 Enterococcus as the cause of diseases classified elsewhere; B96.89 Other specified bacterial agents as the cause of diseases classified elsewhere; M86.9 Osteomyelitis, unspecified
CPT/HCPCS: 96365

== ENCOUNTER 2018-06-26 10:02 | Outpatient (CLI) ==
[2018-06-26] MEDS ORDERED: ROCEPHIN 2 GM in SODIUM CHLORIDE 50 ML IV STA (10:23)
[2018-06-26 11:15] VITALS: BP 121/70; TEMP 97.7
== END 2018-06-26 10:03 | disposition home or self-care (01) ==
LOC: OPMED 10:02
PROVIDERS: ATTEND Internal Medicine Infectious Disease
DX: L02.612 Cutaneous abscess of left foot (principal); L02.611 Cutaneous abscess of right foot; B95.61 Methicillin susceptible Staphylococcus aureus infection as the cause of diseases classified elsewhere; B95.2 Enterococcus as the cause of diseases classified elsewhere; B96.89 Other specified bacterial agents as the cause of diseases classified elsewhere; M86.9 Osteomyelitis, unspecified
CPT/HCPCS: 96365

== ENCOUNTER 2018-06-27 09:52 | Outpatient (CLI) ==
[2018-06-27] MEDS ORDERED: ROCEPHIN 2 GM in SODIUM CHLORIDE 50 ML IV STA (10:00)
[2018-06-27 10:07] VITALS: BP 146/85; TEMP 98.1
== END 2018-06-27 09:53 | disposition home or self-care (01) ==
LOC: OPMED 09:52
PROVIDERS: ATTEND Internal Medicine Infectious Disease
DX: L02.612 Cutaneous abscess of left foot (principal); L02.611 Cutaneous abscess of right foot; B95.61 Methicillin susceptible Staphylococcus aureus infection as the cause of diseases classified elsewhere; B95.2 Enterococcus as the cause of diseases classified elsewhere; B96.89 Other specified bacterial agents as the cause of diseases classified elsewhere; M86.9 Osteomyelitis, unspecified
CPT/HCPCS: 96365

== ENCOUNTER 2018-06-28 07:49 | Outpatient (CLI) ==
[2018-06-28 08:17] VITALS: BP 152/97; TEMP 97.6
[2018-06-28] MEDS ORDERED: ROCEPHIN 2 GM in SODIUM CHLORIDE 50 ML IV STA (08:21)
== END 2018-06-28 07:50 | disposition home or self-care (01) ==
LOC: OPMED 07:49
PROVIDERS: ATTEND Podiatrist
DX: L02.612 Cutaneous abscess of left foot (principal); L02.611 Cutaneous abscess of right foot; B95.61 Methicillin susceptible Staphylococcus aureus infection as the cause of diseases classified elsewhere; B95.2 Enterococcus as the cause of diseases classified elsewhere; B96.89 Other specified bacterial agents as the cause of diseases classified elsewhere; M86.9 Osteomyelitis, unspecified
CPT/HCPCS: 36415; 80053; 85025; 85651; 86140; 87040; 87070; 87075; 87186; 96365

== ENCOUNTER 2018-06-29 09:19 | Outpatient (CLI) ==
[2018-06-29 09:39] VITALS: BP 155/93; TEMP 97.3
[2018-06-29] MEDS ORDERED: ROCEPHIN 2 GM in SODIUM CHLORIDE 50 ML IV STA (09:42)
== END 2018-06-29 09:20 | disposition home or self-care (01) ==
LOC: OPMED 09:19
PROVIDERS: ATTEND Internal Medicine Infectious Disease
DX: L02.612 Cutaneous abscess of left foot (principal); L02.611 Cutaneous abscess of right foot; B95.61 Methicillin susceptible Staphylococcus aureus infection as the cause of diseases classified elsewhere; B95.2 Enterococcus as the cause of diseases classified elsewhere; B96.89 Other specified bacterial agents as the cause of diseases classified elsewhere; M86.9 Osteomyelitis, unspecified
CPT/HCPCS: 96365

== ENCOUNTER 2018-07-01 08:31 | Outpatient (CLI) ==
[2018-07-01 08:43] VITALS: BP 133/82; TEMP 97.2
[2018-07-01] MEDS ORDERED: ROCEPHIN 2 GM in SODIUM CHLORIDE 50 ML IV STA (08:47)
== END 2018-07-01 08:32 | disposition home or self-care (01) ==
LOC: OPMED 08:31
PROVIDERS: ATTEND Internal Medicine Infectious Disease
DX: L02.612 Cutaneous abscess of left foot (principal); L02.611 Cutaneous abscess of right foot; B95.61 Methicillin susceptible Staphylococcus aureus infection as the cause of diseases classified elsewhere; B95.2 Enterococcus as the cause of diseases classified elsewhere; B96.89 Other specified bacterial agents as the cause of diseases classified elsewhere; M86.9 Osteomyelitis, unspecified
CPT/HCPCS: 96365

== ENCOUNTER 2018-07-08 09:02 | Outpatient (CLI) ==
[2018-07-08 09:26] VITALS: BP 142/83; TEMP 98.4
[2018-07-08] MEDS ORDERED: ROCEPHIN 2 GM in SODIUM CHLORIDE 50 ML IV STA (09:41)
[2018-07-08] MEDS ORDERED: INVANZ 1 GM in SODIUM CHLORIDE 50 ML IV STA (09:42)
== END 2018-07-08 09:03 | disposition home or self-care (01) ==
LOC: OPMED 09:02
PROVIDERS: ATTEND Internal Medicine Infectious Disease
DX: L02.612 Cutaneous abscess of left foot (principal); M86.9 Osteomyelitis, unspecified; B96.1 Klebsiella pneumoniae [K. pneumoniae] as the cause of diseases classified elsewhere; B95.61 Methicillin susceptible Staphylococcus aureus infection as the cause of diseases classified elsewhere; B95.0 Streptococcus, group A, as the cause of diseases classified elsewhere
CPT/HCPCS: 96365; 96366

== ENCOUNTER 2018-07-09 07:49 | Outpatient (CLI) ==
[2018-07-09 08:02] VITALS: BP 154/89; TEMP 97.3
[2018-07-09] MEDS ORDERED: ROCEPHIN 2 GM in SODIUM CHLORIDE 50 ML IV STA (08:09)
[2018-07-09] MEDS ORDERED: INVANZ 1 GM in SODIUM CHLORIDE 50 ML IV STA (08:10)
== END 2018-07-09 07:50 | disposition home or self-care (01) ==
LOC: OPMED 07:49
PROVIDERS: ATTEND Internal Medicine Infectious Disease
DX: L02.612 Cutaneous abscess of left foot (principal); M86.9 Osteomyelitis, unspecified; B96.1 Klebsiella pneumoniae [K. pneumoniae] as the cause of diseases classified elsewhere; B95.61 Methicillin susceptible Staphylococcus aureus infection as the cause of diseases classified elsewhere; B95.0 Streptococcus, group A, as the cause of diseases classified elsewhere
CPT/HCPCS: 96365; 96366

== ENCOUNTER 2018-07-10 10:50 | Outpatient (CLI) ==
[2018-07-10 11:03] VITALS: BP 123/77; TEMP 98
[2018-07-10] MEDS ORDERED: ROCEPHIN 2 GM in SODIUM CHLORIDE 50 ML IV STA (11:03)
[2018-07-10] MEDS ORDERED: INVANZ 1 GM in SODIUM CHLORIDE 50 ML IV STA (11:04)
== END 2018-07-10 10:51 | disposition home or self-care (01) ==
LOC: OPMED 10:50
PROVIDERS: ATTEND Internal Medicine Infectious Disease
DX: L02.612 Cutaneous abscess of left foot (principal); M86.9 Osteomyelitis, unspecified; B96.1 Klebsiella pneumoniae [K. pneumoniae] as the cause of diseases classified elsewhere; B95.61 Methicillin susceptible Staphylococcus aureus infection as the cause of diseases classified elsewhere; B95.0 Streptococcus, group A, as the cause of diseases classified elsewhere
CPT/HCPCS: 96365

== ENCOUNTER 2018-07-11 09:16 | Outpatient (CLI) ==
[2018-07-11] MEDS ORDERED: ROCEPHIN 2 GM in SODIUM CHLORIDE 50 ML IV STA (09:31)
[2018-07-11] MEDS ORDERED: INVANZ 1 GM in SODIUM CHLORIDE 50 ML IV STA (09:31)
== END 2018-07-11 09:17 | disposition home or self-care (01) ==
LOC: OPMED 09:16
PROVIDERS: ATTEND Internal Medicine Infectious Disease
DX: L02.612 Cutaneous abscess of left foot (principal); M86.9 Osteomyelitis, unspecified; B96.1 Klebsiella pneumoniae [K. pneumoniae] as the cause of diseases classified elsewhere; B95.61 Methicillin susceptible Staphylococcus aureus infection as the cause of diseases classified elsewhere; B95.0 Streptococcus, group A, as the cause of diseases classified elsewhere
CPT/HCPCS: 96365; 96366

== ENCOUNTER 2018-07-12 08:19 | Outpatient (CLI) ==
[2018-07-12 08:28] VITALS: BP 165/59; TEMP 98.2
[2018-07-12] MEDS ORDERED: ROCEPHIN 2 GM in SODIUM CHLORIDE 50 ML IV STA (08:31)
[2018-07-12] MEDS ORDERED: INVANZ 1 GM in SODIUM CHLORIDE 50 ML IV STA (08:32)
== END 2018-07-12 08:20 | disposition home or self-care (01) ==
LOC: OPMED 08:19
PROVIDERS: ATTEND Internal Medicine Infectious Disease
DX: L02.612 Cutaneous abscess of left foot (principal); M86.9 Osteomyelitis, unspecified; B96.1 Klebsiella pneumoniae [K. pneumoniae] as the cause of diseases classified elsewhere; B95.61 Methicillin susceptible Staphylococcus aureus infection as the cause of diseases classified elsewhere; B95.0 Streptococcus, group A, as the cause of diseases classified elsewhere
CPT/HCPCS: 36415; 80053; 85025; 85651; 86140; 96365; 96366

== ENCOUNTER 2018-07-13 11:26 | Outpatient (CLI) ==
[2018-07-13 11:40] VITALS: BP 142/78; TEMP 98.7
[2018-07-13] MEDS ORDERED: ROCEPHIN 2 GM in SODIUM CHLORIDE 50 ML IV STA (11:43)
[2018-07-13] MEDS ORDERED: INVANZ 1 GM in SODIUM CHLORIDE 50 ML IV STA (11:44)
== END 2018-07-13 11:27 | disposition home or self-care (01) ==
LOC: OPMED 11:26
PROVIDERS: ATTEND Internal Medicine Infectious Disease
DX: L02.612 Cutaneous abscess of left foot (principal); M86.9 Osteomyelitis, unspecified; B96.1 Klebsiella pneumoniae [K. pneumoniae] as the cause of diseases classified elsewhere; B95.61 Methicillin susceptible Staphylococcus aureus infection as the cause of diseases classified elsewhere; B95.0 Streptococcus, group A, as the cause of diseases classified elsewhere
CPT/HCPCS: 96365; 96366

== ENCOUNTER 2018-07-16 09:16 | Outpatient (CLI) ==
[2018-07-16 10:12] VITALS: BP 148/79; TEMP 96.6
[2018-07-16] MEDS ORDERED: ROCEPHIN 2 GM in SODIUM CHLORIDE 50 ML IV STA (10:17)
[2018-07-16] MEDS ORDERED: INVANZ 1 GM in SODIUM CHLORIDE 50 ML IV STA (10:18)
== END 2018-07-16 09:17 | disposition home or self-care (01) ==
LOC: OPMED 09:16
PROVIDERS: ATTEND Internal Medicine Infectious Disease
DX: L02.612 Cutaneous abscess of left foot (principal); M86.9 Osteomyelitis, unspecified; B96.1 Klebsiella pneumoniae [K. pneumoniae] as the cause of diseases classified elsewhere; B95.61 Methicillin susceptible Staphylococcus aureus infection as the cause of diseases classified elsewhere; B95.0 Streptococcus, group A, as the cause of diseases classified elsewhere
CPT/HCPCS: 96365; 96366

== ENCOUNTER 2018-07-19 08:33 | Outpatient (CLI) ==
[2018-07-19 08:59] VITALS: TEMP 97.2
[2018-07-19] MEDS ORDERED: ROCEPHIN 2 GM in SODIUM CHLORIDE 50 ML IV STA (09:06)
[2018-07-19] MEDS: INVANZ 1 GM in SODIUM CHLORIDE 50 ML IV STA ×2 (09:20→10:20)
== END 2018-07-19 08:34 | disposition home or self-care (01) ==
LOC: OPMED 08:33
PROVIDERS: ATTEND Internal Medicine Infectious Disease
DX: L02.612 Cutaneous abscess of left foot (principal); M86.9 Osteomyelitis, unspecified; B96.1 Klebsiella pneumoniae [K. pneumoniae] as the cause of diseases classified elsewhere; B95.61 Methicillin susceptible Staphylococcus aureus infection as the cause of diseases classified elsewhere; B95.0 Streptococcus, group A, as the cause of diseases classified elsewhere
CPT/HCPCS: 36415; 80053; 85025; 85651; 86140; 96365; 96366